=== PATIENT | female | born 1980 | race Caucasian/White ===

== ENCOUNTER 2016-07-02 17:53 | Emergency (ER) | payer OTHER ==
[~2016-07-02] VITALS: Ht 172.7 cm; Wt 105.3 kg
[2016-07-02 17:56] VITALS: TEMP 36.6; Ht 172.7 cm; Wt 105.3 kg
[2016-07-02] MEDS ORDERED: IBUP-1050 PO (18:20)
[2016-07-02] MEDS ORDERED: GABA800T PO (18:20)
[2016-07-02] MEDS ORDERED: EFF75 PO (18:20)
--- NOTE | 2016-07-02 18:37 | DIAGNOSTIC IMAGING REPORT ---
LEFT FOOT MIN 3 VIEWS ROUTINE CLINICAL HISTORY: Left foot pain status post trauma COMPARISON: None. DISCUSSION: There is dorsal soft tissue swelling. There is a nondisplaced fracture involving the proximal phalanx of the fourth toe. There are no dislocations. IMPRESSION: Nondisplaced fracture involving the proximal phalanx the fourth toe Electronically signed by: Christiano Treviño M.D. 07/02/2016 6:34 PM Dictated Date/Time: 07/02/2016 6:34 PM
--- NOTE | 2016-07-02 18:55 | EMERGENCY ROOM VISIT NOTE ---
ED Visit Note First contact with patient: 17:57 CHIEF COMPLAINT: Foot pain HISTORY OF PRESENT ILLNESS: This 35-year-old female patient presents to the emergency department ambulatory complaining of swelling and pain in the left foot at rest and worse with weight bearing. The patient states that 3 days ago, she tripped and hit the left foot off of a wall. The patient rates the pain as dull and 9/10. She reports the pain is mostly in the lateral toes and lateral aspect of the foot. The patient has not taken any medication for relief of the pain. The patient is able to walk. No numbness or weakness. No ankle pain. There are no lacerations of the foot. The patient is able to move all of their toes, but states it is painful to do so. No previous fracture to this foot. REVIEW OF SYSTEMS: GENERAL: A 6 system review of systems was completed with positives and pertinent negatives in the HPI. ALLERGIES: No known drug allergies MEDICATIONS: Neurontin, Effexor PMH: No significant past medical history. SOCIAL HISTORY: The patient lives locally with family. She is a smoker. She denies alcohol use. PHYSICAL EXAM: Vital Signs: Reviewed Nurse's notes, vital signs stable. GENERAL : This is a 35-year-old female, in no acute distress, but appears in pain, well- developed, well-nourished. MUSCULOSKELETAL: There is no visual deformity of the left foot. There is mild edema, without erythema or ecchymosis. There is no warmth. There is tenderness and swelling over the dorsolateral aspect of the left foot. There is tenderness of the third, fourth and fifth toes. There is no tenderness over the lateral or medial malleolus. No tenderness of the proximal tib/fib. The range of motion of the toes is somewhat limited secondary to pain. There is no tenderness over the plantar fascia. The skin is intact and there are no lacerations or puncture wounds. Dorsalis pedis pulse 2+ . Capillary refill less than 2 seconds. RADIOGRAPHIC FINDINGS: LEFT FOOT MIN 3 VIEWS ROUTINE CLINICAL HISTORY: Left foot pain status post trauma COMPARISON: None. DISCUSSION: There is dorsal soft tissue swelling. There is a nondisplaced fracture involving the proximal phalanx of the fourth toe. There are no dislocations. IMPRESSION: Nondisplaced fracture involving the proximal phalanx the fourth toe EMERGENCY DEPARTMENT COURSE: I examined the patient. An X-ray of the left foot was reviewed by myself and radiology and reveals a nondisplaced fracture of the left fourth toe. The patient was placed in a postoperative shoe. Conservative measures were discussed. She was instructed to follow-up with her primary care provider as needed. She verbalized understanding of my assessment and treatment plan and was discharged home in good condition. DIAGNOSIS: Left fourth toe fracture Problem List Medical Problems: (1) Asthma Status: Chronic (2) Contact dermatitis Status: Resolved (3) Deep venous thrombosis of lower extremity Status: Resolved (4) Herniated disc Status: Chronic (5) Multiple sclerosis Status: Chronic (6) Normal delivery Status: Resolved (7) PREG COMPL NOS-ANTEPART Status: Resolved (8) Right knee pain Status: Resolved Current/Historical Medications Scheduled Gabapentin (Neurontin), 800 MG PO QID Ibuprofen (Advil), 400-600 MG PO Q6H Venlafaxine Hcl (Effexor), 75 MG PO DAILY Allergies Coded Allergies: No Known Allergies (Verified , 02/14/13) Vital Signs Date Time Temp Pulse Resp B/P Pulse Ox O2 Delivery O2 Flow Rate FiO2 07/02/16 19:12 70 20 142/73 92 07/02/16 17:56 36.6 102 18 123/83 93 Room Air Departure Information Impression Primary Impression: Fracture of toe of left foot Dispostion Home / Self-Care Condition GOOD Referrals Zane Amezcua M.D. (PCP) Patient Instructions My [facility] Additional Instructions You have been treated in the Emergency Department for a toe fracture. For pain control, you can use the following [id number] medicines (if >12 yo): - Regular strength (325mg/tab) Tylenol (acetaminophen) 2 tabs every 4-6 hours as needed. Do not exceed 12 tablets in a 24 hour period. Avoid taking more than 4 grams (4000 mg) of Tylenol per day. This includes any other sources of acetaminophen you may take on a regular basis. - Regular strength (200 mg/tab) Advil (ibuprofen) 1-2 tabs every 4-6 hours as needed. Do not exceed a dose of 3200 mg per day. If this is a recent injury (<24 hrs), ice can be applied to the area of pain for the first 3 days to help decrease pain and inflammation. Wear the postop shoe as needed for pain in the toe/foot. Return to the Emergency Department if your current symptoms worsen despite treatment course outlined above, or if you develop any of the following symptoms : intractable pain despite aforementioned treatment course or new onset of numbness or tingling of the foot. Problem Qualifiers Primary Impression: Fracture of toe of left foot Encounter type: initial encounter Toe: unspecified toe Fracture type: closed Fracture alignment: nondisplaced Qualified Codes: S92.912A - Unspecified fracture of left toe(s), initial encounter for closed fracture
[2016-07-02 19:12] VITALS: BP 142/73; PULSE 70; O2SAT 92
== END 2016-07-02 19:11 | disposition home or self-care (01) ==
LOC: C.EDB 17:54 → C.EDD 19:11
DX: S92.902A Unspecified fracture of left foot, initial encounter for closed fracture (principal); X58.XXXA Exposure to other specified factors, initial encounter; J45.909 Unspecified asthma, uncomplicated; Z86.718 Personal history of other venous thrombosis and embolism

== ENCOUNTER → 2016-10-12 | Outpatient (CLI) | payer OTHER ==
[~2016-10-12] MED LIST: EFF75 PO; EFFSR150 PO; GABA800T PO; IBUP-1050 PO; KLN1X PO
== END | disposition home or self-care (01) ==
LOC: C.LAB 18:42
DX: Z02.83 Encounter for blood-alcohol and blood-drug test (principal)

== ENCOUNTER 2016-12-13 22:52 | Emergency (ER) | payer OTHER ==
[~2016-12-13] VITALS: Ht 174 cm; Wt 91.0 kg
[~2016-12-13 22:52] MED LIST changes: -EFFSR150 PO; -KLN1X PO
[2016-12-13 23:00] VITALS: TEMP 36.8; Ht 174 cm; Wt 91.0 kg
[2016-12-13] MEDS ORDERED: KLN1X PO (23:49)
[2016-12-13] MEDS ORDERED: METOCLOPRAMIDE HCL INJ 5 MG/ML 2 ML VIAL IV STA (23:50)
[2016-12-13] MEDS ORDERED: KETOROLAC TROMETHAMINE 30 MG/ML VIAL IV STA (23:50)
[2016-12-13] MEDS ORDERED: EFFSR150 PO (23:50)
[2016-12-13] MEDS ORDERED: DiphenhydrAMINE HCL 50 MG/ML VIAL IV STA (23:50)
[2016-12-14 01:01] LABS: BASO % 0.4 %; BASO ABS # 0.04 K/uL (0-0.2); COMPLETE YES; EOS % 3.5 %; HEMATOCRIT 41.1 % (37-47); IG% 0.4 %; LYMPH % 24.4 %; LYMPH ABS # 2.78 K/uL (1.2-3.4); MEAN CELL VOLUME 91.1 fL (80-100); MEAN CORPUSCULAR HEMOGLOBIN 30.8 pg (25-34); MEAN CORPUSCULAR HGB CONC 33.8 g/dl (32-36); MEAN PLATELET VOLUME 10.2 fL (7.4-10.4); MONO % 9.1 %; NEUT % 62.2 %; PLATELET COUNT 233 K/uL (130-400); RED BLOOD COUNT 4.51 M/uL (4.2-5.4)
[2016-12-14 01:23] LABS: ALT/SGPT 22 U/L (12-78); AST/SGOT 12 U/L (15-37); BLOOD UREA NITROGEN 15 mg/dl (7-18); BUN/CREATININE RATIO 19.9 (10-20); CALCIUM 8.9 mg/dl (8.5-10.1); CARBON DIOXIDE 27 mmol/L (21-32); CHLORIDE 108 mmol/L (98-107); CREATININE 0.76 mg/dl (0.60-1.20); GLUCOSE 104 mg/dl (70-99); POTASSIUM 3.7 mmol/L (3.5-5.1); SODIUM 142 mmol/L (136-145)
[2016-12-14 01:25] LABS: ALKALINE PHOSPHATASE 68 U/L (45-117); C-REACTIVE PROTEIN < 0.29 mg/dl (0-0.29)
[2016-12-14] MEDS ORDERED: GADAVIST IV PRN (01:30)
[2016-12-14 01:37] LABS: PREG INTERNAL NEGATIVE QC NEG CLEAR BACKGROUND; PREG INTERNAL POSITIVE QC POS CONTROL LINE
--- NOTE | 2016-12-14 02:32 | EMERGENCY ROOM VISIT NOTE ---
History First contact with patient: 23:21 Chief Complaint: BACK PAIN Stated Complaint: BACK/NECK/HIP PAIN History of Present Illness The patient is a 36 year old female who presents to the Emergency Room with complaints of severe pain that shoots from her upper back down to her lower back for the past 2 weeks is also had increasing tingling in her extremities he suffers from MS and follows with Dr. Ashley. Pain currently 8 out of 10. Nothing makes it better or worse. She has not seen anybody for this. She is not seen her neurologist in about a year. No recent flares of her MS. Patient denies chest pain, dyspnea, localized weakness, headache, neck stiffness, fall, trauma, loss of bowel or bladder control, saddle anesthesia, fever, chills, leg weakness. Review of Systems See HPI for pertinent positives & negatives. A total of 10 systems reviewed and were otherwise negative. Past Medical/Surgical History Medical Problems: (1) Asthma (2) Contact dermatitis (3) Deep venous thrombosis of lower extremity (4) Herniated disc (5) Multiple sclerosis (6) Normal delivery (7) PREG COMPL NOS-ANTEPART (8) Right knee pain Family History Patient reports no known family medical history. Social History Smoking Status: Current Every Day Smoker Alcohol Use: none Drug Use: none Marital Status: single Housing Status: lives with family Occupation Status: unemployed Current/Historical Medications Scheduled Gabapentin (Neurontin), 800 MG PO QID Venlafaxine Hcl (Effexor Extended Rel), 150 MG PO DAILY Scheduled PRN Clonazepam (Clonazepam), 1 MG PO TID PRN for Anxiety Ibuprofen (Advil), 400-600 MG PO Q6H PRN for Pain Physical Exam Vital Signs Date Time Temp Pulse Resp B/P (MAP) Pulse Ox O2 Delivery O2 Flow Rate FiO2 12/14/16 01:00 54 18 98/56 94 Room Air 12/13/16 23:00 36.8 81 20 132/78 95 Room Air Physical Exam VITALS: Vitals are noted on the nurse's note and reviewed by myself. Vital signs stable. GENERAL: White female anxious-appearing, in no acute distress, nondiaphoretic, well-developed well-nourished. SKIN: The skin was without rashes, erythema, edema, or bruising. There is no tenting of the skin. Capillary reflex less than 2 seconds. HEAD: Normocephalic atraumatic. EARS: External auditory canals clear, tympanic membranes pearly jones without erythema or effusion bilaterally. EYES: Pupils equal round and reactive to light and accommodation. Conjunctivae without injection, sclerae without icterus. Extraocular movements intact. NOSE: Patent, turbinates without inflammation or discharge. MOUTH: Mucous membranes moist. Pharynx without erythema or exudate. Uvula midline. Airway patent. Tongue does not deviate. NECK: Supple without nuchal rigidity. No lymphadenopathy. No thyromegaly. Cervical spine is nontender. No JVD. HEART: Regular rate and rhythm without murmurs gallops or rubs. LUNGS: Clear to auscultation bilaterally without wheezes, rales or rhonchi. No dullness to percussion. No retractions or accessory muscle use. ABDOMEN: Positive bowel sounds x 4. Normal tympanic percussion. Soft, nontender, without masses or organomegaly. Liang sign negative. No guarding or rebound tenderness. MUSCULOSKELETAL: No muscle atrophy, erythema, or edema noted. No thoracic or spinal tenderness on exam, paraspinous muscles tender to palpation. Negative straight leg raise. Patient can plantarflex and dorsiflex without difficulties. +2 patellar reflexes bilaterally. 5 out of 5 strength throughout. NEURO: Patient was alert and oriented to person place and time. Normal sensation to light and sharp touch. No focal neurological deficits. Medical Decision & Procedures Laboratory Results 12/14/16 00:45 Red Blood Count 4.51, Mean Corpuscular Volume 91.1, Mean Corpuscular Hemoglobin 30.8, Mean Corpuscular Hemoglobin Concent 33.8, Mean Platelet Volume 10.2, Neutrophils (%) (Auto) 62.2, Lymphocytes (%) (Auto) 24.4, Monocytes (%) (Auto) 9.1, Eosinophils (%) (Auto) 3.5, Basophils (%) (Auto) 0.4, Neutrophils # (Auto) 7.10, Lymphocytes # (Auto) 2.78, Monocytes # (Auto) 1.04, Eosinophils # (Auto) 0.40, Basophils # (Auto) 0.04 12/14/16 00:45 Test 12/14/16 00:45 White Blood Count 11.40 K/uL (4.8-10.8) Red Blood Count 4.51 M/uL (4.2-5.4) Hemoglobin 13.9 g/dL (12.0-16.0) Hematocrit 41.1 % (37-47) Mean Corpuscular Volume 91.1 fL (80-100) Mean Corpuscular Hemoglobin 30.8 pg (25-34) Mean Corpuscular Hemoglobin Concent 33.8 g/dl (32-36) Platelet Count 233 K/uL (130-400) Mean Platelet Volume 10.2 fL (7.4-10.4) Neutrophils (%) (Auto) 62.2 % Lymphocytes (%) (Auto) 24.4 % Monocytes (%) (Auto) 9.1 % Eosinophils (%) (Auto) 3.5 % Basophils (%) (Auto) 0.4 % Neutrophils # (Auto) 7.10 K/uL (1.4-6.5) Lymphocytes # (Auto) 2.78 K/uL (1.2-3.4) Monocytes # (Auto) 1.04 K/uL (0.11-0.59) Eosinophils # (Auto) 0.40 K/uL (0-0.5) Basophils # (Auto) 0.04 K/uL (0-0.2) RDW Standard Deviation 41.9 fL (36.4-46.3) RDW Coefficient of Variation 12.5 % (11.5-14.5) Immature Granulocyte % (Auto) 0.4 % Immature Granulocyte # (Auto) 0.04 K/uL (0.00-0.02) Erythrocyte Sedimentation Rate 3 mm/hr (0-21) Anion Gap 7.0 mmol/L (3-11) Est Creatinine Clear Calc Drug Dose 123.0 ml/min Estimated GFR () 117.8 Estimated GFR (Non- 101.6 BUN/Creatinine Ratio 19.9 (10-20) Calcium Level 8.9 mg/dl (8.5-10.1) Total Bilirubin 0.5 mg/dl (0.2-1) Direct Bilirubin < 0.1 mg/dl (0-0.2) Aspartate Amino Transf (AST/SGOT) 12 U/L (15-37) Alanine Aminotransferase (ALT/SGPT) 22 U/L (12-78) Alkaline Phosphatase 68 U/L (45-117) C-Reactive Protein < 0.29 mg/dl (0-0.29) Total Protein 7.5 gm/dl (6.4-8.2) Albumin 4.5 gm/dl (3.4-5.0) Human Chorionic Gonadotropin, Qual NEG (NEG) Medications Administered Medications (Trade) Dose Ordered Sig/Jenaro Route Start Time Stop Time Status Last Admin Dose Admin Ketorolac Tromethamine (Toradol Inj) 30 mg NOW STAT IV 12/13/16 23:50 12/13/16 23:54 DC 12/14/16 00:47 30 MG Metoclopramide HCl (Reglan Inj) 10 mg NOW STAT IV 12/13/16 23:50 12/13/16 23:54 DC 12/14/16 00:46 10 MG Diphenhydramine HCl (Benadryl Inj) 25 mg NOW STAT IV 12/13/16 23:50 12/13/16 23:54 DC 12/14/16 00:47 25 MG ED Course Prior records/ancillary studies reviewed. Triage Nursing notes reviewed. Additional history obtained from family. The patient's history was concerning for back pain that is shocklike and peripheral tingling was MS. Differential diagnosis: Etiologies such as MS flare, electrolyte abnormality, musculoskeletal, disc herniation, fracture, aortic disease, metastatic disease, cord compression, discitis, infection, renal colic, gastrointestinal, acute exacerbation of chronic back pain, sciatica, cauda equina, as well as others were entertained. Physical findings: As above. No focal neurologic findings noted. ER treatment provided: Toradol, Reglan, Benadryl On reassessment the patient felt better. Diagnostics interpreted by me: The labs revealed negative sedimentation rate and CRP Imaging studies: Brain MRI negative for acute flare for MS This appears to be consistent with back pain with peripheral tingling. Patient is well-known to this ER for frequent visits and is on our no narcotic list. Patient is neurovascular and neurologically intact. She is well-appearing. Patient had unremarkable workup as above. She is advised to follow-up with her family care and neurologist in a few days or here in the ER sooner for pain, weakness, fevers, worsening signs or symptoms or as needed. Patient ambulated out of the ER without difficulties. By the evaluation outlined above emergent etiologies such as fracture, aortic disease, metastatic disease, infection, renal colic, gastrointestinal, cord compression, cauda equina, as well as others were deemed relatively unlikely. The pt informed about the findings as listed above. All questions were answered and pleased with the treatment. Return instructions were outlined and the patient was discharged in stable condition. Referral: The patient was referred back to neurology and/or primary care physician for follow-up in 2 to 3 days for a recheck of the current condition. Case reviewed with my attending. Medical Decision As above Medication Reconcilliation Current Medication List: was personally reviewed by me Blood Pressure Screening Patient's blood pressure: Normal blood pressure Impression Primary Impression: Back pain Additional Impression: Tingling in extremities Departure Information Dispostion Home / Self-Care Condition GOOD Referrals No Doctor, Assigned (PCP) Patient Instructions My [facility] Additional Instructions DO NOT drive, drink alcohol, operate machinery, or perform dangerous activities today. You were given medications in the ER that can affect your ability to safely function or operate a vehicle. Ibuprofen(Motrin, Advil) may be used for fever or pain. Use 600mg every six hours as needed. Take with food. Avoid using more than 2400mg in a 24 hour period. Do not use 2400mg per day for more than three consecutive days without physician direction. Prolonged inappropriate use can lead to stomach upset or ulcers. This medication can be taken if you need to drive, work, or perform activities which may be dangerous when taking narcotic pain medication. (AND/OR) Acetaminophen(Tylenol) may be used for fever or pain. Use 1000mg every six hours as needed. Avoid using more than 3000mg in a 24 hour period. This medication can be taken if you need to drive, work, or perform activities which may be dangerous when taking narcotic pain medication. Rest and avoid heavy lifting until your symptoms resolve and then gradually return to full activity. A good rule of thumb is if it hurts your back to perform a certain activity, then it should be avoided until you are healthy again. A heating pad, warm compresses, or a hot shower may help with tight muscles and can be done several times a day as needed. Continue current medications. Return to the ER immediately for any numbness, tingling, severe pain, loss of control of your bowels or bladder, inability to walk, or as needed. Follow up with your primary care physician within 3-5 days for a recheck of your current condition. Problem Qualifiers
[2016-12-14 02:57] VITALS: BP 112/75; PULSE 64; O2SAT 98
--- NOTE | 2016-12-14 06:44 | DIAGNOSTIC IMAGING REPORT ---
BRAIN COMBO FOR MS HISTORY: Demyelinating disorder MS with increased tingling and Lhermitte sign, ? Flare TECHNIQUE: Multiplanar multisequence MRI of the brain was performed both before and after the intravenous administration of contrast. COMPARISON STUDY: 06/28/2013 FINDINGS: No significant change compared to the prior exam. Multiple foci of increased signal within the periventricular deep white matter regions consistent with multiple sclerosis. Is unchanged compared to the prior study. Diffusion-weighted images show a small focus of slightly increased signal posterior left frontal lobe unchanged from the prior exam. This appears to be a chronic finding and is unaltered. No significant postcontrast enhancement. IMPRESSION: Findings consistent with a stable demyelinating disorder. No change compared to the prior exam. The above report was generated using voice recognition software. It may contain grammatical, syntax or spelling errors. Electronically signed by: Khang Payne M.D. 12/14/2016 6:43 AM Dictated Date/Time: 12/14/2016 6:38 AM
== END 2016-12-14 02:58 | disposition home or self-care (01) ==
LOC: C.EDB 22:52
DX: M54.9 Dorsalgia, unspecified (principal); R20.2 Paresthesia of skin; G35 Multiple sclerosis; J45.909 Unspecified asthma, uncomplicated; Z86.718 Personal history of other venous thrombosis and embolism; F17.210 Nicotine dependence, cigarettes, uncomplicated; Z79.899 Other long term (current) drug therapy

== ENCOUNTER 2017-01-18 10:29 | Emergency (ER) | payer OTHER ==
[~2017-01-18] VITALS: Ht 172.7 cm; Wt 93.3 kg
[~2017-01-18 10:29] MED LIST changes: -EFF75 PO; +EFFSR150 PO; +KLN1X PO
[2017-01-18 10:33] VITALS: TEMP 37.3; Ht 172.7 cm; Wt 93.3 kg
[2017-01-18] MEDS ORDERED: SODIUM CHLORIDE 0.9% 1000ML 2,000 ML IV STA (12:05)
[2017-01-18] MEDS ORDERED: CLINDAMYCIN 600 MG/54 ML D5W IV ONE (12:15)
[2017-01-18] MEDS ORDERED: OPTIRAY 320 IV PRN (12:15)
[2017-01-18 12:38] LABS: BASO % 0.3 %; BASO ABS # 0.04 K/uL (0-0.2); COMPLETE YES; HEMATOCRIT 46.4 % (37-47); IG% 0.2 %; LYMPH % 14.3 %; LYMPH ABS # 1.66 K/uL (1.2-3.4); MEAN CELL VOLUME 91.3 fL (80-100); MEAN CORPUSCULAR HEMOGLOBIN 31.9 pg (25-34); MEAN CORPUSCULAR HGB CONC 34.9 g/dl (32-36); MEAN PLATELET VOLUME 10.4 fL (7.4-10.4); MONO % 6.7 %; NEUT % 77.5 %; PLATELET COUNT 214 K/uL (130-400); RED BLOOD COUNT 5.08 M/uL (4.2-5.4); WHITE BLOOD COUNT 11.62 K/uL (4.8-10.8)
[2017-01-18 12:49] LABS: ISTAT CREATININE 0.6 mg/dl (0.6-1.3); ISTAT HEMOGLOBIN 16.7 g/dl (12.0-16.0); ISTAT IONIZED CALCIUM 1.2 mmol/l (1.12-1.32)
[2017-01-18 12:55] LABS: BUN/CREATININE RATIO 16.8 (10-20); CREATININE 0.68 mg/dl (0.60-1.20)
[2017-01-18] MEDS ORDERED: KETOROLAC TROMETHAMINE 30 MG/ML VIAL IV STA (13:34)
[2017-01-18] MEDS ORDERED: MoRPHine SULFATE 4 MG/ML 1 ML CARP\\VIAL IV STA (13:34)
--- NOTE | 2017-01-18 13:47 | DIAGNOSTIC IMAGING REPORT ---
FACIAL-MAXILLOFACIAL WITH CLINICAL HISTORY: r jaw swelling pain. Edema. TECHNIQUE: Transaxial acquisition of multi axial reformatted images COMPARISON STUDY: 06/05/2007 FINDINGS: Interval development of rather extensive right perimandibular and to a lesser extent right. Maxillary soft tissue edematous/infiltrative change. Interval removal of several mandibular as well as maxillary teeth. Findings of caries involving the mid right maxillary and mandibular residual dilatation.. Small air-containing bubble is present within the soft tissues.. A drainable abscess or collection is not appreciated. Mild infiltrative change surrounding the right parotid gland. Moderate infiltrative change of the subcutaneous fat inferior to the mandible. No significant bony destructive change. Globes are symmetric.] Gallbladder structures are unremarkable. IMPRESSION: 1. Findings consistent with diffuse right dao maxillary and perimandibular cellulitis on the right. 2. Several caries involving the residual right maxillary and right mandibular dentition. 3. No evidence for drainable abscess or collection although a diffuse cellulitis is again present. The above report was generated using voice recognition software. It may contain grammatical, syntax or spelling errors. Electronically signed by: Khang Payne M.D. 01/18/2017 1:46 PM Dictated Date/Time: 01/18/2017 1:28 PM
[2017-01-18] MEDS ORDERED: AMOX875T PO (14:25)
[2017-01-18 14:46] VITALS: BP 145/76; PULSE 82; O2SAT 98
--- NOTE | 2017-01-18 17:18 | EMERGENCY ROOM VISIT NOTE ---
History Report prepared by Scribyulissa: Rod Moy Under the Supervision of: Dr. Tristin Silverman D.O. First contact with patient: 11:46 Chief Complaint: FACIAL PAIN/INJURY Stated Complaint: MOUTH PAIN History of Present Illness The patient is a 36 year old female who presents to the Emergency Room with complaints of worsening right lower dental pain and swelling beginning one month ago. She also complains of nausea. She states that she had a fever two weeks ago, but has not had any since. Pt denies headache, change in vision, fevers, chest pain, shortness of breath, vomiting, diarrhea, pain with urination , and melena. She states that she has not gotten to in with her dentist because she has not had transportation. She states that she was seen at urgent care yesterday and started on Penicillin. The patient states that her swelling doubled in size overnight. She is able to open her mouth. She is able to swallow. No trouble breathing. Source of History: patient Onset: One month ago Position: other (right lower dental) Quality: other (pain and swelling) Timing: worsening Associated Symptoms: + fevers (two weeks ago), + nausea, No headache, No chest pain, No SOB, No vomiting, No abdominal pain Review of Systems See HPI for pertinent positives & negatives. A total of 10 systems reviewed and were otherwise negative. Past Medical & Surgical Medical Problems: (1) Asthma (2) Contact dermatitis (3) Deep venous thrombosis of lower extremity (4) Herniated disc (5) Multiple sclerosis (6) Normal delivery (7) PREG COMPL NOS-ANTEPART (8) Right knee pain Family History Patient reports no known family medical history. Social History Smoking Status: Current Every Day Smoker Alcohol Use: none Drug Use: none Marital Status: single Housing Status: lives with family Occupation Status: unemployed Current/Historical Medications Scheduled Amoxicillin & Pot Clavulanate (Augmentin 875-125 mg), 875 MG PO BID Gabapentin (Neurontin), 800 MG PO QID Venlafaxine Hcl (Effexor Extended Rel), 150 MG PO DAILY Allergies Coded Allergies: No Known Allergies (Verified , 01/18/17) Physical Exam Vital Signs Date Time Temp Pulse Resp B/P (MAP) Pulse Ox O2 Delivery O2 Flow Rate FiO2 01/18/17 14:46 82 16 145/76 98 01/18/17 13:53 124/77 01/18/17 10:33 37.3 79 16 145/88 98 Room Air Physical Exam GENERAL: Sitting up in bed, disheveled, tearful. EYE EXAM: normal conjunctiva OROPHARYNX: Large amount of swelling along the right inferior mandible at third tooth from the right lower posterior molar. poor dentition noted. No swelling in the submental region. Previous removal of multiple teeth. Able to swallow and handle secretions. No exudate, no erythema, lips, buccal mucosa, and tongue normal and mucous membranes are moist. NECK: supple, no nuchal rigidity, no adenopathy, non-tender. No stridor. LUNGS: Clear to auscultation. Normal chest wall mechanics HEART: no murmurs, S1 normal and S2 normal ABDOMEN: abdomen soft, non-tender, normo-active bowel sounds, no masses, no rebound or guarding. SKIN: no rashes and no bruising UPPER EXTREMITIES: upper extremities are grossly normal. LOWER EXTREMITIES: No pitting edema. NEURO EXAM: Normal sensorium, cranial nerves II-XII grossly intact, normal speech, no gross weakness of arms, no gross weakness of legs. Medical Decision & Procedures ER Provider Diagnostic Interpretation: CT:Per my review, radiologist interpretation. FACIAL-MAXILLOFACIAL WITH FINDINGS: Interval development of rather extensive right perimandibular and to a lesser extent right. Maxillary soft tissue edematous/infiltrative change. Interval removal of several mandibular as well as maxillary teeth. Findings of caries involving the mid right maxillary and mandibular residual dilatation.. Small air-containing bubble is present within the soft tissues.. A drainable abscess or collection is not appreciated. Mild infiltrative change surrounding the right parotid gland. Moderate infiltrative change of the subcutaneous fat inferior to the mandible. No significant bony destructive change. Globes are symmetric.] Gallbladder structures are unremarkable. IMPRESSION: 1. Findings consistent with diffuse right dao maxillary and perimandibular cellulitis on the right. 2. Several caries involving the residual right maxillary and right mandibular dentition. 3. No evidence for drainable abscess or collection although a diffuse cellulitis is again present. The above report was generated using voice recognition software. It may contain grammatical, syntax or spelling errors. Electronically signed by: Khang Payne M.D. 01/18/2017 1:46 PM Laboratory Results 01/18/17 12:30 Red Blood Count 5.08, Mean Corpuscular Volume 91.3, Mean Corpuscular Hemoglobin 31.9, Mean Corpuscular Hemoglobin Concent 34.9, Mean Platelet Volume 10.4, Neutrophils (%) (Auto) 77.5, Lymphocytes (%) (Auto) 14.3, Monocytes (%) (Auto) 6.7, Eosinophils (%) (Auto) 1.0, Basophils (%) (Auto) 0.3, Neutrophils # (Auto) 9.00, Lymphocytes # (Auto) 1.66, Monocytes # (Auto) 0.78, Eosinophils # (Auto) 0.12, Basophils # (Auto) 0.04 01/18/17 12:30 Test 01/18/17 12:30 01/18/17 12:39 White Blood Count 11.62 K/uL (4.8-10.8) Red Blood Count 5.08 M/uL (4.2-5.4) Hemoglobin 16.2 g/dL (12.0-16.0) Hematocrit 46.4 % (37-47) Mean Corpuscular Volume 91.3 fL (80-100) Mean Corpuscular Hemoglobin 31.9 pg (25-34) Mean Corpuscular Hemoglobin Concent 34.9 g/dl (32-36) Platelet Count 214 K/uL (130-400) Mean Platelet Volume 10.4 fL (7.4-10.4) Neutrophils (%) (Auto) 77.5 % Lymphocytes (%) (Auto) 14.3 % Monocytes (%) (Auto) 6.7 % Eosinophils (%) (Auto) 1.0 % Basophils (%) (Auto) 0.3 % Neutrophils # (Auto) 9.00 K/uL (1.4-6.5) Lymphocytes # (Auto) 1.66 K/uL (1.2-3.4) Monocytes # (Auto) 0.78 K/uL (0.11-0.59) Eosinophils # (Auto) 0.12 K/uL (0-0.5) Basophils # (Auto) 0.04 K/uL (0-0.2) RDW Standard Deviation 41.4 fL (36.4-46.3) RDW Coefficient of Variation 12.2 % (11.5-14.5) Immature Granulocyte % (Auto) 0.2 % Immature Granulocyte # (Auto) 0.02 K/uL (0.00-0.02) Est Creatinine Clear Calc Drug Dose 137.9 ml/min Estimated GFR () 131.3 Estimated GFR (Non- 113.3 BUN/Creatinine Ratio 16.8 (10-20) Calcium Level 9.0 mg/dl (8.5-10.1) Bedside Hemoglobin 16.7 g/dl (12.0-16.0) Bedside Hematocrit 49 % (37-47) Bedside Sodium 140 mEq/L (135-144) Bedside Potassium 4.0 mEq/L (3.3-5.0) Bedside Chloride 105 mEq/L (101-112) Bedside Total CO2 24 mEq/l (24-31) Anion Gap 16.0 mmol/L (16-25) Bedside Blood Urea Nitrogen 12 mg/dl (7-18) Bedside Creatinine 0.6 mg/dl (0.6-1.3) Bedside Glucose (other) 101 mg/dl (70-99) Bedside Ionized Calcium (Katie) 1.20 mmol/l (1.12-1.32) Laboratory results per my review. Medications Administered Medications (Trade) Dose Ordered Sig/Jenaro Route Start Time Stop Time Status Last Admin Dose Admin Sodium Chloride 2,000 ml @ 999 mls/hr Q2H1M STAT IV 01/18/17 12:05 01/18/17 14:05 DC 01/18/17 13:47 999 MLS/HR Clindamycin Phosphate (Cleocin 600mg/ 54ml D5W) 600 mg ONE ONCE IV 01/18/17 12:15 01/18/17 12:16 DC 01/18/17 13:47 600 MG Ketorolac Tromethamine (Toradol Inj) 30 mg NOW STAT IV 01/18/17 13:34 01/18/17 13:36 DC 01/18/17 13:46 30 MG Morphine Sulfate (MoRPHine SULFATE INJ) 4 mg NOW STAT IV 01/18/17 13:34 01/18/17 13:36 DC 01/18/17 13:47 4 MG ED Course ED COURSE: Vital signs were reviewed and showed mild hypertension. The patients medical record was reviewed The above diagnostic studies were performed and reviewed. ED treatments and interventions as stated above. 1202: The patient was evaluated in room C10. A complete history and physical examination was performed. 1205: Ordered Sodium Chloride 2000 ml @ 999 mls/hr IV. 1215: Ordered Cleocin 600 mg/53 mL D5W 600 mg IV. 1334: Ordered Morphine Sulfate 4 mg IV, Toradol Inj 30 mg IV. 1425: Upon reevaluation, the patient is resting comfortably. I discussed my findings with the patient and she understands and agrees with the treatment plan. Based on the patients age, coexisting illnesses, exam and lab findings the decision to treat as an outpatient was made. The patient remained stable while under my care. The patient appeared well at the time of discharge. Medical Decision Differential diagnoses includes but is not limited to dental fracture, dental carries, and dental abscess. Patient is a 36-year-old female who presents to ER for swelling along her right lower jaw. This does appear to be dental in origin as she does dental caries. CBC along with BMP was unremarkable. CT of the face shows a right-sided cellulitis. There is nothing externally, face and back and see. I discussed with oral maxillary facial as I believe this to be the origin which would be her right lower third tooth from the back molar. Vitals are stable. She was given small dose of IV morphine although on the known isaacs list with the amount of swelling she had. There is no airway compromise. No signs of Sterling' s angina. Able to breathe without stridor. Able to open the mouth completely. No signs of trismus. Patient was switched to Augmentin per OMFS. She was discharged to follow-up within 24-48 hours. Discussed with Pt concerning signs and symptoms to watch out for. Pt was instructed to follow up with their PCP and discussed with the patient their option to return to the ED at anytime for persistent or worsening symptoms. The appropriate anticipatory guidance and out- patient management, including indications for return to the emergency department , were explained at length to the patient and understood. Medication Reconcilliation Current Medication List: was personally reviewed by me Blood Pressure Screening Patient's blood pressure: Elevated blood pressure Blood pressure disposition: Elevated BP felt to be situational Impression Primary Impression: Facial cellulitis Scribe Attestation The scribe's documentation has been prepared under my direction and personally reviewed by me in its entirety. I confirm that the note above accurately reflects all work, treatment, procedures, and medical decision making performed by me. Departure Information Dispostion Home / Self-Care Prescriptions Amoxicillin & Pot Clavulanate (Augmentin 885-125 mg) 1 Tab Tab 875 MG PO BID for 10 Days, TAB Prov: SilvermanTristin, DO 01/18/17 Referrals No Doctor, Assigned (PCP) Forms HOME CARE DOCUMENTATION FORM, IMPORTANT VISIT INFORMATION Patient Instructions ED Cellulitis Facial, [facility] Additional Instructions Please follow up with your primary care doctor oral maxillary facial surgery with in the next 24 hours. Any worsening of your symptoms, please return to the ED immediately. This includes any fevers greater than 100.4, worsening pain , unable to appear mouth, unable to swallow, unable to breathe, unable to turn her neck without pain, chest pain, shortness breath, persistent nausea, vomiting , unable to eat or drink, or any other concerning signs or symptoms from your standpoint. Please stop taking your penicillin. Please start taking Augmentin. Please follow up with oral maxillary facial as listed below within 24 hours.
== END 2017-01-18 14:47 | disposition home or self-care (01) ==
LOC: EDBD 10:29 → C.EDB 10:30 → C.EDC 14:47
DX: L03.211 Cellulitis of face (principal); K02.9 Dental caries, unspecified; J45.909 Unspecified asthma, uncomplicated; G35 Multiple sclerosis; F17.200 Nicotine dependence, unspecified, uncomplicated; Z86.718 Personal history of other venous thrombosis and embolism; Z79.899 Other long term (current) drug therapy

== ENCOUNTER 2017-05-13 19:53 | Emergency (ER) | payer OTHER ==
[~2017-05-13] VITALS: Ht 174 cm; Wt 99.8 kg
[~2017-05-13 19:53] MED LIST changes: -IBUP-1050 PO; -KLN1X PO
[2017-05-13 20:10] VITALS: Ht 174 cm; Wt 99.8 kg
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
[2017-05-13 20:47] VITALS: BP 126/76; PULSE 81; TEMP 36.9; O2SAT 98
== END 2017-05-13 20:48 | disposition home or self-care (01) ==
LOC: C.EDB 19:55 → C.EDD 20:48
DX: T21.22XA Burn of second degree of abdominal wall, initial encounter (principal); X12.XXXA Contact with other hot fluids, initial encounter; Y92.9 Unspecified place or not applicable; J45.909 Unspecified asthma, uncomplicated; G35 Multiple sclerosis; Z79.899 Other long term (current) drug therapy